=== PATIENT | female | born 1995 | race Caucasian/White ===

== ENCOUNTER 2019-01-27 14:22 | Outpatient (CLI) | payer BC ==
[~2019-01-27] VITALS: Ht 160 cm; Wt 52.2 kg
[~2019-01-27 14:22] MED LIST: CRAN250C2 PO; HYDR-3584 PO; LAMO25TA8 PO; MELA1TAB9 PO; bcp PO
[2019-01-27] MEDS ORDERED: RT-ALBUINH INH (14:31)
== END 2019-01-27 16:11 | disposition home or self-care (01) ==
LOC: PREOP 14:22
PROVIDERS: ATTEND Otolaryngology Otolaryngology/Facial Plastic Surgery
DX: Z01.818 Encounter for other preprocedural examination (principal)

== ENCOUNTER 2019-01-31 06:31 | Day surgery (SDC) | payer BC ==
[2019-01-31] VITALS (11 sets, daily range): BP systolic 88–120; BP diastolic 48–82
[~2019-01-31] VITALS: Ht 160 cm; Wt 52.2 kg
[~2019-01-31 06:31] MED LIST changes: +RT-ALBUINH INH
[2019-01-31] MEDS ORDERED: LACTATED RINGERS 1,000 ML IV PRN (06:38)
[2019-01-31] MEDS ORDERED: proPOfol 200 MG/20 ML (DIPRIVAN) VIAL IV ONE (06:47)
[2019-01-31] MEDS ORDERED: MIDAZOLAM 2 MG/2 ML (VERSED) VIAL ONE (06:47)
[2019-01-31] MEDS ORDERED: DEXAMETHASONE 10 MG/ML (DECADRON) 1 ML VIAL ONE ×2 (06:47→08:12)
[2019-01-31] MEDS ORDERED: fentaNYL INJECTION 100 MCG/2 ML AMP ONE (06:47)
[2019-01-31] MEDS ORDERED: LIDOCAINE PF 2% 5 ML (XYLOCAINE) VIAL ONE (06:47)
[2019-01-31] MEDS ORDERED: ONDANSETRON 4 MG/2 ML (SDV) Z0FRAN ONE (06:47)
--- OUTSIDE RECORDS SUMMARY | 2019-01-31 06:50 | XMS REPORT | Continuity of Care Document ---
Author Author [facility] Address [address] [place] [address] Care Team Providers Care Food Preparer Name Role Phone Janet Beau PCP Unavailable Beau Gonzales Attphys Unavailable Allergies, Adverse Reactions, Alerts No allergy information available. Medications No medication information available. Problem List No problem information available. Procedures No known history of procedures. Relevant Diagnostic Tests and/or Laboratory Data Laboratory Results Test Date/Time Result Interp. Ref. Range Result Comment White Blood Count November 05, 2018 4:51pm 5.1 10^3/uL 4.5-11.0 Red Blood Count November 05, 2018 4:51pm 4.34 10^6/uL 3.50-5.40 Hemoglobin November 05, 2018 4:51pm 14.7 g/dL 12.0-16.0 Hematocrit November 05, 2018 4:51pm 42.4 % 36-48 Mean Corpuscular Volume November 05, 2018 4:51pm 97.6 fL 79-99 Mean Corpuscular Hemoglobin November 05, 2018 4:51pm 33.9 pg 25.0-34.0 Mean Corpuscular Hemoglobin Concent November 05, 2018 4:51pm 34.7 g/dL 31.0-36.0 Red Cell Distribution Width November 05, 2018 4:51pm 12.4 % 11.0-15.0 Platelet Count November 05, 2018 4:51pm 206 10^3 uL 130-400 Mean Platelet Volume November 05, 2018 4:51pm 8.3 fL 7.0-11.0 Neutrophils (%) (Auto) November 05, 2018 4:51pm 62.6 % 43.0-72.0 Lymphocytes (%) (Auto) November 05, 2018 4:51pm 28.8 % 15.0-45.0 Monocytes (%) (Auto) November 05, 2018 4:51pm 7.2 % 1.0-12.0 Eosinophils (%) (Auto) November 05, 2018 4:51pm 1.1 % 0.0-6.0 Basophils (%) (Auto) November 05, 2018 4:51pm 0.3 % 0.0-2.0 Neutrophils # (Auto) November 05, 2018 4:51pm 3.2 10^3 uL 1.0-8.0 Lymphocytes # (Auto) November 05, 2018 4:51pm 1.5 10^3 uL 1.0-3.0 Monocytes # (Auto) November 05, 2018 4:51pm 0.4 10^3 uL 0.0-1.0 Eosinophils # (Auto) November 05, 2018 4:51pm 0.1 10^3 uL 0.0-0.4 Basophils # (Auto) November 05, 2018 4:51pm 0.0 10^3 uL 0.0-0.2 Sodium Level November 05, 2018 4:51pm 138 mmol/L 135-150 Potassium Level November 05, 2018 4:51pm 3.8 mmol/L 3.4-5.2 Chloride Level November 05, 2018 4:51pm 107 mmol/L 100-112 Carbon Dioxide Level November 05, 2018 4:51pm 23 mEq/L 18-30 Anion Gap November 05, 2018 4:51pm 8 mmol/L 8-11 Blood Urea Nitrogen November 05, 2018 4:51pm 5 mg/dL 5-21 Creatinine November 05, 2018 4:51pm 0.63 mg/dL 0.60-1.30 Glomerular Filtration Rate Calc November 05, 2018 4:51pm > 60 mL/Min > 60 The GFR is not validated for use in drug dosing adjustments. Continue to use estimated creatinine clearance per dosing reference text. Chronic Kidney Disease is defined as either kidney damage or a GFR less than 60 ml/min that persists for at least 3 months. Stage 3=30-59 ml/min Stage 4=15-29 ml/min Stage 5=<15 ml/min Glucose Level November 05, 2018 4:51pm 77 mg/dL 70-99 Hemoglobin A1c November 05, 2018 4:51pm < 5.4 % <6.4 Hemoglobin A1C levels are related to mean blood glucose during the preceding 2 - 3 months. The relationship table below may be used as a general guide. HGB A1C APPROX. MEAN GLUCOSE 5% 97 mg/dL 6% 126 mg/dL 7% 154 mg/dL 8% 183 mg/dL 9% 212 mg/dL 10% 240 mg/dL 11% 269 mg/dL 12% 298 mg/dL Each 1% increase in HGB A1C is a reflection of an increase in mean glucose of approximately 30 mg/dl. Calcium Level November 05, 2018 4:51pm 9.7 mg/dL 8.6-10.5 Total Bilirubin November 05, 2018 4:51pm 0.7 mg/dL 0.0-1.2 Direct Bilirubin November 05, 2018 4:51pm 0.3 mg/dL High 0.0-0.2 Aspartate Amino Transf (AST/SGOT) November 05, 2018 4:51pm 25 U/L 6-37 Alanine Aminotransferase (ALT/SGPT) November 05, 2018 4:51pm 18 U/L 12-78 Total Protein November 05, 2018 4:51pm 7.5 g/dL 6.4-8.2 Albumin November 05, 2018 4:51pm 3.8 g/dL 3.3-4.5 Albumin/Globulin Ratio November 05, 2018 4:51pm 1.0 0.7-2.0 Triglycerides Level November 05, 2018 4:51pm 56 mg/dL <149 Cholesterol Level November 05, 2018 4:51pm 167 mg/dL <199 LDL Cholesterol, Calculated November 05, 2018 4:51pm 99 mg/dL <99 Cholesterol Risk Levels Calculated LDL Chol Optimal < 200 mg/dl Optimal < 100 mg/dL Borderline 200-240 mg/dL Near Optimal 100-129 mg/dl High > 240 mg/dl Borderline 130-160 mg/dl High > 240 mg/dl High > 160 mg/dl HDL Cholesterol Risk Levels Chol/HDL Ratio Risk Levels Male Female Male Female Decreased >45 mg/dl >55 mg/dl 1/2 Average 3.43 3.27 Average 45 mg/dl 55 mg/dl Average 4.97 4.44 Increased <45 mg/dl <55 mg/dl 2X Average 9.55 7.05 3X Average 23.39 11.04 HDL Cholesterol November 05, 2018 4:51pm 57 mg/dL >41 Cholesterol/HDL Ratio November 05, 2018 4:51pm 2.93 <4.43 Non-HDL Cholesterol November 05, 2018 4:51pm 110.0 mg/dL <129.9 The National Cholesterol Education Program (NCEP) has recommended that non-HDL cholesterol be used as a secondary target of therapy in people with triglyceride levels > 200 who have achieved their LDL-C goal. The recommended therapeutic goal of non-HDL cholesterol is 30 mg/dL higher than the LDL goal or <130 mg/dL for this patient. Alkaline Phosphatase November 05, 2018 4:51pm 58 U/L 50-136 Thyroid Stimulating Hormone (TSH) November 05, 2018 4:51pm 1.377 uIU/mL 0.35-4.94 Hospital Discharge Instructions No known hospital discharge instructions. Encounters Encounter Facility Location Admit/Visit Date Discharge/Departure Date Attending Provider Departed [facility] - [facility] Acute November 05, 2018 4:41pm November 05, 2018 4:42pm Beau Gonzales Functional Status No known functional status. Immunizations No known immunizations. Payers Payer Name Policy Type Covered [employer] Covered [employer] Id Relationship Subscriber Subscriber Id [facility] [employer] Sherry Nixon [id number] Daughter Sherry Nixon [id number] Self Pay Plan of Care No Known Plan of Care Information Social History No known social history. Vital Signs No known vital signs results.
--- OUTSIDE RECORDS SUMMARY | 2019-01-31 06:50 | XMS REPORT | Continuity of Care Document ---
Author Organization Unknown Address Unknown Allergies Active Description Code Type Severity Reaction Onset Reported/Identified Relationship to Patient Clinical Status Yes NO NAME AVAILABLE 09190 DRUG N/A N/A Medications There is no data. Problems There is no data. Procedures There is no data. Results There is no data. Encounters ACCT No. Visit Date/Time Discharge Status Pt. Type Provider Facility Loc./Unit Complaint [id number] 08/26/2018 14:42:56 08/26/2018 23:59:59 [facility] Outpatient [facility]
[2019-01-31 07:02] LABS: BASOPHILS % (AUTO) 0 % (0-10); EOSINOPHILS # (AUTO) 0.1 10^3/uL (0.0-0.3); EOSINOPHILS % (AUTO) 2 % (0-10); HEMATOCRIT 41 % (35-52); HEMOGLOBIN 14.3 G/DL (11.5-16.0); LYMPHOCYTES # (AUTO) 2.4 X 10^3 (1.0-4.0); LYMPHOCYTES % (AUTO) 47 % (12-44); MEAN CORPUSCULAR HEMOGLOBIN 33 PG (25-34); MEAN CORPUSCULAR HGB CONC 35 G/DL (32-36); MEAN CORPUSCULAR VOLUME 93 FL (80-99); MEAN PLATELET VOLUME 9.6 FL (7.4-10.4); MONOCYTES # (AUTO) 0.5 X 10^3 (0.0-1.0); MONOCYTES % (AUTO) 10 % (0-12); NEUTROPHILS # (AUTO) 2.1 X 10^3 (1.8-7.8); NEUTROPHILS % (AUTO) 41 % (42-75); PLATELET COUNT 215 10^3/uL (130-400); RED CELL DISTRIBUTION WIDTH 12.3 % (10.0-14.5); WHITE BLOOD COUNT 5.2 10^3/uL (4.3-11.0)
--- NOTE | 2019-01-31 07:08 | Progress Note-Pre Operative ---
Pre-Operative Progress Note H&P Reviewed The H&P was reviewed, patient examined and no changes noted. Date Seen by Provider: Jan 31, 2019 Time Seen by Provider: 07:00 Date H&P Reviewed: Jan 31, 2019 Time H&P Reviewed: 07:00 Pre-Operative Diagnosis: Recurrent Tons PASTOR BAKER MD Jan 31, 2019 07:07
[2019-01-31] MEDS ORDERED: LIDOCAINE JELLY 2% 6 ML SYRINGE ONE (08:12)
[2019-01-31] MEDS ORDERED: SEVOFLURANE (ULTANE) 15 ML INHAL SOLN ONE ×2 (08:12→08:37)
[2019-01-31] MEDS ORDERED: NS IV 1000 ML 1,000 ML IV SCH (08:28)
--- NOTE | 2019-01-31 08:28 | Progress Note-Post Operative ---
Post-Operative Progess Note Surgeon (s)/Heating And Cooling Technician (s) Surgeon PASTOR BAKER MD Heating And Cooling Technician n/a Pre-Operative Diagnosis Recurrent TonsILLITIS Post-Operative Diagnosis same Post-Op Procedure Note Date of Procedure: Jan 31, 2019 Name of Procedure Performed: Tonsillectomy Description & Findings Description and Findings: n/a Anesthesia Type get Estimated Blood Loss minimal Packing none. Specimen(s) collected/removed tonsils PASTOR BAKER MD Jan 31, 2019 08:28
[2019-01-31] MEDS ORDERED: APAP 325 MG/10.15 ML LIQ (TYLENOL) UDC PO PRN (08:30)
[2019-01-31] MEDS ORDERED: HYDROcodone/APAP 7.5MG-325 MG/15 ML (LORTAB) UDC PO PRN (08:30)
[2019-01-31] MEDS ORDERED: ONDANSETRON 4 MG/2 ML (SDV) Z0FRAN IVP PRN (08:45)
[2019-01-31] MEDS ORDERED: fentaNYL INJECTION 100 MCG/2 ML AMP IVP ONE (08:45)
[2019-01-31] MEDS ORDERED: MEPERIDINE (DEMEROL) INJ 50 MG/ML IVP ONE (08:45)
[2019-01-31] MEDS ORDERED: morphine INJ 10 MG/ML 1ML (SYR OR VIAL) IVP ONE (08:45)
[2019-01-31] MEDS ORDERED: TETRACAINESUCKERS MT (10:18)
[2019-01-31] MEDS ORDERED: HYDR15SO8 PO (10:18)
[2019-01-31] MEDS ORDERED: DEXAINTSOL PO (10:18)
[2019-01-31] MEDS ORDERED: AMOX250S5 PO (10:18)
--- NOTE | 2019-01-31 14:30 | Anesthesia-General Post-Op ---
General Patient Condition Mental Status/LOC: Same as Preop Cardiovascular: Satisfactory Nausea/Vomiting: Absent Respiratory: Satisfactory Pain: Controlled Complications: Absent Post Op Complications Complications None Follow Up Care/Instructions Patient Instructions None needed. Anesthesia/Patient Condition Patient Condition Patient was seen this morning after the procedure and she was doing well, no complaints, stable vital signs, no apparent adverse anesthesia problems. HERLINDA JACKSON DO Jan 31, 2019 14:30
== END 2019-01-31 11:40 | disposition home or self-care (01) ==
LOC: SDC 06:31
PROVIDERS: ATTEND Otolaryngology Otolaryngology/Facial Plastic Surgery
DX: J35.01 Chronic tonsillitis (principal); J45.909 Unspecified asthma, uncomplicated; Z79.899 Other long term (current) drug therapy
CPT/HCPCS: 36415; 84703; 85025; 87081